=== PATIENT | male | born 2000 | race African-American/Black ===

== ENCOUNTER 2018-09-14 15:30 | Emergency (ER) | payer SELFPAY ==
[~2018-09-14] VITALS: Ht 182.9 cm; Wt 81.7 kg
[2018-09-14] MEDS ORDERED: HYDROcodone/APAP 5/325 TABLET ONE ×2 (16:37→17:43)
[2018-09-14] MEDS ORDERED: HYDROcodone/APAP 5/325 TABLET PO ONE ×2 (17:00→18:00)
[2018-09-14 17:55] VITALS: BP 128/64
== END 2018-09-14 18:16 | disposition home or self-care (01) ==
LOC: ED 18:11
DX: S82.222A Displaced transverse fracture of shaft of left tibia, initial encounter for closed fracture (principal); W22.8XXA Striking against or struck by other objects, initial encounter; Y93.89 Activity, other specified; Y92.009 Unspecified place in unspecified non-institutional (private) residence as the place of occurrence of the external cause; Y99.8 Other external cause status
CPT/HCPCS: 29505; 99283